=== PATIENT | female | born 1950 | race Two or more races ===

== ENCOUNTER 2017-09-17 21:24 | Emergency (ER) | payer MEDICARE, MEDICAID ==
[~2017-09-17] VITALS: Ht 170.2 cm; Wt 160.0 kg
[~2017-09-17 21:24] MED LIST: AMIODARONE HCL 50MG/ML 3ML VIAL IV ONE; ATROPINE SULFATE 1MG/10ML SYR ONE; CALCIUM CHLORIDE 1GM/10ML SYR IV ONE; DEXTROSE 50% WATER 50ML SYRINGE IV ONE; EPINEPHRINE 0.1MG/ML (1:10,000) 10ML SYR ONE; SODIUM BICARBONATE 7.5% 0.9 MEQ/ML 50ML SYR IV ONE
[2017-09-17] MEDS ORDERED: DEXTROSE 50% WATER 50ML SYRINGE IV ONE ×3 (21:55→23:30)
[2017-09-17 22:45] LABS: HEMOGLOBIN. 10.3 g/dL (12.0-16.0); MEAN CORPUSCULAR HEMOGLOBIN 27.1 pg (28.0-32.0); MEAN CORPUSCULAR VOLUME 89.3 fL (81.0-99.0); RED BLOOD CELL COUNT 3.81 mill/uL (4.2-5.4); RED CELL DISTRIBUTION WIDTH 25.5 % (11.6-14.6)
[2017-09-17 22:52] LABS: CHLORIDE 103 mEq/L (98-107)
[2017-09-17 22:53] LABS: INR 2.8; PROTHROMBIN TIME 29.3 sec (9.4-11.6)
[2017-09-18] MEDS ORDERED: ONDANSETRON HCL 4MG/2ML VIAL IV NR (00:13)
[2017-09-18] MEDS ORDERED: MORPHINE SULFATE 4 MG/ML CPJ (NOT FOR IM USE) IV NR (00:13)
[2017-09-18] MEDS ORDERED: AZTREONAM 2 GM in DEXT 5% WATER 100 ML IV SCH (00:15)
[2017-09-18] MEDS ORDERED: LEVOFLOXACIN 750MG PREMIX 150 ML IV NR (00:15)
[2017-09-18] MEDS ORDERED: VANCOMYCIN 1 G PREMIX 200 ML IV SCH (00:15)
[2017-09-18 01:20] LABS: CLARITY URINE CLOUDY (CLEAR); COLOR URINE DARK YELLOW (YELLOW); KETONES URINE NEGATIVE (NEGATIVE); LEUKOCYTE ESTERASE URINE 3+ (NEGATIVE); NITRITE URINE POSITIVE (NEGATIVE); OCCULT BLOOD URINE 1+ (NEGATIVE); PROTEIN URINE 2+ (NEGATIVE); SPECIFIC GRAVITY URINE 1.027 (1.005-1.030); UROBILINOGEN URINE 0.2 E.U./dL (0.2-1.0)
[2017-09-18] MEDS ORDERED: DEXTROSE 50% WATER 50ML SYRINGE IV ONE ×4 (02:00→09:26)
[2017-09-18 08:14] LABS: BG BASE EXCESS -19.6 mmol/L (-2.0-2.0); BG CARBOXYHEMOGLOBIN 0.2 % (0.5-1.5); BG DEOXYHEMOGLOBIN 0.2 % (0.0-5.0); BG FRACTION INSPIRED OXYGEN 100; BG HCO3 ACT 7.3 mmol/L (22.0-26.0); BG METHEMOGLOBIN 0.3 % (0.0-1.5); BG OXYGEN SATURATION 99.8 % (92.0-98.5); BG OXYHEMOGLOBIN 99.3 % (94.0-97.0); BG PCO2 21.1 mmHg (35.0-45.0); BG PH 7.158 (7.350-7.450); BG PO2 391.2 mmHg (75.0-100.0); BG PRESSURE SUPPORT 10; BG SAMPLE SITE RIGHT BRACHIAL; BG TOTAL HEMOGLOBIN 10.8 g/dL (12.0-18.0); BG VENT MODE MASK - BIPAP; BG VENT RATE 16 set
[2017-09-18] MEDS ORDERED: SODIUM CHLORIDE 0.9% 1,000 ML IV ONE (08:29)
[2017-09-18 08:30] VITALS: BP 59/25
[2017-09-18 08:42] LABS: BG BILEVEL POS AIRWAY PRESSURE ST=15/5
[2017-09-18] MEDS ORDERED: SUCCINYLCHOLINE CHLORIDE 200MG/10ML VIAL IV ONE ×2 (09:00→12:00)
[2017-09-18] MEDS ORDERED: PROPOFOL 10MG/ML 100ML 100 ML IV ONE (09:00)
[2017-09-18] MEDS ORDERED: ETOMIDATE 2MG/ML 10ML VIAL IV ONE (12:00)
== END 2017-09-18 09:43 | disposition expired ==
LOC: ER 21:58 → EDBEDREQTM 09-18 02:16 → EDBEDREQ 09-18 02:16 → EDBEDREQSVC 09-18 08:30 → ER 09-18 09:43 → CANBEDREQ 09-18 15:21
DX: G93.40 Encephalopathy, unspecified (principal); E87.2 Acidosis; E11.649 Type 2 diabetes mellitus with hypoglycemia without coma; I10 Essential (primary) hypertension; Z88.0 Allergy status to penicillin
CPT/HCPCS: 31500; 36415; 36600; 51702; 70450; 71045; 80048; 80053; 81003; 82375; 82805; 82962; 83605; 85025; 85610; 87040; 87077; 87086; 87186; 92950; 93005; 94640; 94660; 96365; 96366; 96367; 96375; 99285; J0282; J0330; J0461; J1956; J3370; J3490; J7030; 94002; J7060; A4315